=== PATIENT | male | born 1935 | race Caucasian/White ===

== ENCOUNTER 2018-03-11 12:35 | Emergency (ER) | payer MEDICARE, OTHER ==
--- NOTE | 2018-03-11 12:42 | ED Physician Documentation ---
PD HPI Fall - Stated complaint Stated Complaint: GLF - History obtained from History obtained from: Patient, Family - History of Present Illness Mechanism of injury: Slipped (He was in the emergency department with his . He was all but running down the hallway and slipped forward and fell face first hitting his face on the ground. He has a lip wound but no other injuries. There is no loss of consciousness and he is not anticoagulated. He has a history of Parkinson's but does not use any aids to help him walk.) Review of Systems Constitutional: denies: Fever, Chills Nose: denies: Rhinorrhea / runny nose, Congestion Cardiac: denies: Chest pain / pressure, Palpitations Respiratory: denies: Dyspnea, Cough PD PAST MEDICAL HISTORY - Past Medical History Cardiovascular: High cholesterol Endocrine/Autoimmune: Type 2 diabetes : Benign prostate hypertrophy - Past Surgical History Past Surgical History: Yes General: Cholecystectomy - Present Medications Home Medications: Ambulatory Orders Medication Instructions Recorded Confirmed Carbidopa/Levodopa ER 50/200 1 each PO QID 09/14/12 09/14/12 [Sinemet Cr 50 mg/200 mg] Fenofibrate 160 mg PO HS 09/14/12 09/14/12 Finasteride [Proscar] 5 mg PO DAILY 09/14/12 09/14/12 - Allergies Allergies/Adverse Reactions: Allergies Allergy/AdvReac Type Severity Reaction Status Date / Time Sulfa (Sulfonamide AdvReac Intermediate yeast Verified 03/11/18 12:45 Antibiotics) infection - Social History Does the pt smoke?: No Smoking Status: Never smoker Does the pt drink ETOH?: No - Immunizations Immunizations are current?: No PD ED PE NORMAL - Vitals Vital signs reviewed: Yes - General General: Alert and oriented X 3, No acute distress - HEENT HEENT: Pharynx benign, Other (He has dentures on the top and implants on the bottom. It appears that 1 of the teeth either real or false made a wound just to the left of the midline on the mucosal surface of the upper lip with mild maxillary tenderness.) - Neck Neck: Supple, no meningeal sign, No bony TTP - Cardiac Cardiac: RRR, No murmur - Respiratory Respiratory: No respiratory distress, Clear bilaterally - Abdomen Abdomen: Non tender - Back Back: No spinal TTP - Neuro Neuro: Alert and oriented X 3, Normal speech Results - Vitals Vitals: Vital Signs - 24 hr 03/11/18 03/11/18 12:37 12:57 Temperature 36.5 C Heart Rate 71 Respiratory 20 Rate Blood Pressure 89/64 L 122/96 H O2 Saturation 98 Oxygen O2 Source Room air - Labs Labs: Laboratory Tests 03/11/18 03/11/18 03/11/18 14:19 14:19 14:19 WBC 5.0 RBC 4.09 L Hgb 13.7 L Hct 39.1 L MCV 95.5 H MCH 33.6 H MCHC 35.1 RDW 12.5 Plt Count 141 MPV 8.9 Neut # (Auto) 3.0 Lymph # (Auto) 1.6 [place] # (Auto) 0.4 Eos # (Auto) 0.1 Baso # (Auto) 0.0 Absolute Nucleated RBC 0.00 Nucleated RBC % 0.1 PT 13.0 H INR 1.2 Sodium 137 Potassium 4.1 Chloride 103 Carbon Dioxide 29 Anion Gap 5.0 L BUN 21 H Creatinine 1.1 Estimated GFR (MDRD) 64 L Glucose 106 H Calcium 9.2 Total Bilirubin 0.8 AST 33 ALT < 10 L Alkaline Phosphatase 48 Total Protein 7.6 Albumin 4.4 Globulin 3.2 Albumin/Globulin Ratio 1.4 Lipase 35 - Rads (name of study) CT Head/Face and Cspine Radiology: EMP read contemporaneously (Left holohemispheric subdural hematoma with mild mass-effect including 4-5 mm left to right midline shift. The attenuation suggests it is subacute in nature. There is no acute abnormality of the C-spine or facial bones but he does have emphysema at the apices and he is edentulous on top.) PD MEDICAL DECISION MAKING - ED course ED course: This is an 82-year-old gentleman with Parkinson's who took a fall while in the department here with his who was the original patient. He has a lip wound but it is not too serious. He went over for CTs and this demonstrated to my eye a left subdural hemorrhage that does not look acute today, I asked him when he last fell and he took a hard fall about a week ago hitting the right side of his head. Since then per the he has had a mild decline in his balance but not too much worse than his usual from the Parkinson's, they thought that was due to a recent change in his carbidopa/levodopa. [facility] was called for potential transfer for neurosurgical evaluation at 1:52 PM. Took call at about 2:02 from the radiologist who agrees this looks like almost a subacute subdural but it is quite big with a little bit, 4 mm, of midline shift. He agrees the time course would be may be a week old, unless the patient is very anemic in which case it could be acute. I was notified at 2:04 PM that [facility] was full and could not accept this patient in transfer. I spoke with the patient and his and now we will try [facility] in [place]. Per the transfer center they contacted the neurosurgeon who deferred to the hospitalist service for admit. He was accepted there by Dr. Reed at 3:02 PM and cobras were completed. Departure - Departure Disposition: 02 Transfer Acute Care Hosp Clinical Impression: Traumatic subdural hemorrhage Qualifiers: Encounter type: initial encounter Loss of consciousness presence/duration: without LOC Qualified Code(s): S06.5X0A - Traumatic subdural hemorrhage without loss of consciousness, initial encounter Condition: Serious
--- NOTE | 2018-03-11 14:01 | CT Report ---
Reason: head injury, GLF Procedure Date: 03/11/2018 Accession Number: [id number] / [id number] Procedure: CT - Head W/O CPT Code: FULL RESULT: EXAM: CT HEAD EXAM DATE: 03/11/2018 01:34 PM. CLINICAL HISTORY: Head injury, GLF. COMPARISON: None. TECHNIQUE: Multiaxial CT images were obtained from the foramen magnum to the vertex. Reformats: Sagittal and coronal. IV contrast: None. In accordance with CT protocol optimization, one or more of the following dose reduction techniques were utilized for this exam: automated exposure control, adjustment of mA and/or KV based on patient size, or use of iterative reconstructive technique. FINDINGS: Parenchyma: There is low-intermediate attenuation subdural hematoma over the left cerebral convexity. This measures approximately 19 mm in greatest thickness in the left posterior frontal region (series 5, image 21). There is slight mass-effect and indentation of the adjacent parenchyma (series 2, image 24). The left lateral ventricle is mildly effaced. There is approximately 4-5 mm hgvx-rn-[id number] shift at the level of the foramen of Colvin. No other areas of intracranial hemorrhage are demonstrated. The overall tsai-white matter differentiation is preserved. There is focal hypoattenuation in the left external capsule (series 2, image 20), which may represent sequela of previous infarct. Extraaxial Spaces: Left-sided subdural hematoma, as described above. Ventricles: Mild effacement of the left lateral ventricle, as described above. Minimal crowding of the left side of the suprasellar cistern (series 5, image 19). Basal systems are otherwise widely patent. Sinuses and Orbits: The visualized portions of the paranasal sinuses and mastoid air cells are clear. Orbits are unremarkable. Bones: Calvarium appears intact. Other: None. IMPRESSION: Left holohemispheric subdural hematoma with mild mass-effect, including 4-5 mm hfxg-zi-[id number] midline shift. Given the attenuation of the hematoma, this may be subacute in nature. Alternatively, if the patient is anemic, this could represent acute subdural hematoma. RADIA The above findings were discussed with Dr. Mikhail Romero by Dr. London Fry at 14:00 hrs on 03/11/18.
--- NOTE | 2018-03-11 14:04 | CT Report ---
Reason: head injury, GLF Procedure Date: 03/11/2018 Accession Number: [id number] / [id number] Procedure: CT - Cervical Spine W/O CPT Code: FULL RESULT: EXAM: CT CERVICAL SPINE WITHOUT CONTRAST DATE: 03/11/2018 01:34 PM. HISTORY: Head injury, GLF. COMPARISONS: None. TECHNIQUE: Thin-section axial images were acquired of the cervical spine without contrast. Post-processing: Coronal and sagittal reformats. Other: None. In accordance with CT protocol optimization, one or more of the following dose reduction techniques were utilized for this exam: automated exposure control, adjustment of mA and/or KV based on patient size, or use of iterative reconstructive technique. FINDINGS: Alignment: No significant scoliosis or spondylolisthesis. Bones: No acute fracture is demonstrated. Interspace Levels/Facets: Mild disk height loss and uncovertebral spurring present at C5-C6. There is severe right-sided facet degeneration at C2-C3. Mild multilevel facet degeneration present elsewhere. Musculature: No fatty atrophy. Other: No prevertebral soft tissue swelling or paraspinous hematoma. There is mild emphysema in the lung apices. IMPRESSION: 1. No acute fracture or malalignment of the cervical spine. 2. Multilevel degenerative changes, as described above. 3. Mild emphysema in the lung apices. RADIA
--- NOTE | 2018-03-11 14:08 | CT Report ---
Reason: head injury, GLF Procedure Date: 03/11/2018 Accession Number: [id number] / [id number] Procedure: CT - Facial Bones W/O CPT Code: FULL RESULT: EXAM: CT MAXILLOFACIAL WITHOUT CONTRAST EXAM DATE: 03/11/2018 01:34 PM. CLINICAL HISTORY: Head injury, GLF. COMPARISONS: None. TECHNIQUE: Thin-section axial images were acquired of the face without contrast. Post-processing: Coronal and sagittal reformats. Other: None. In accordance with CT protocol optimization, one or more of the following dose reduction techniques were utilized for this exam: automated exposure control, adjustment of mA and/or KV based on patient size, or use of iterative reconstructive technique. FINDINGS: Soft Tissue: No areas of focal soft tissue swelling are identified. Infratemporal fossa and parapharyngeal spaces are unremarkable. Orbits: Unremarkable. Globes are intact. Bones: No acute fracture is demonstrated. Temporomandibular Joints: The temporomandibular joints are symmetric and normally located. Sinuses: Paranasal sinuses and mastoid air cells are clear. Other: Patient is nearly edentulous with prosthetic mandibular incisors. Left whole hemispheric subdural hematoma is described on dedicated head CT. IMPRESSION: 1. No facial bone fracture. 2. Holohemispheric left subdural hematoma, described on dedicated head CT. RADIA
[2018-03-11 14:31] LABS: BASOPHILS % (AUTO) 0.4 %; EOSINOPHILS # (AUTO) 0.1 10^3/uL (0.0-0.7); EOSINOPHILS % (AUTO) 1.6 %; HGB - HEMOGLOBIN 13.7 g/dL (14.0-18.0); LYMPHOCYTES # (AUTO) 1.6 10^3/uL (1.5-3.5); MEAN CORPUSCULAR HEMOGLOBIN 33.6 pg (27.0-31.0); MEAN CORPUSCULAR HGB CONC 35.1 g/dL (32.0-36.0); MEAN CORPUSCULAR VOLUME 95.5 fL (80.0-94.0); MEAN PLATELET VOLUME 8.9 fL (7.4-11.4); MONOCYTES # (AUTO) 0.4 10^3/uL (0.0-1.0); MONOCYTES % (AUTO) 7.1 %; NEUTROPHILS % (AUTO) 58.9 %; PLT - PLATELET COUNT 141 10^3/uL (130-450); RED BLOOD COUNT 4.09 10^6/uL (4.70-6.10); RED CELL DISTRIBUTION WIDTH 12.5 % (12.0-15.0)
[2018-03-11 14:45] LABS: INR 1.2 (0.8-1.2)
[2018-03-11 14:47] LABS: ALBUMIN 4.4 g/dL (3.2-5.5); ALBUMIN/GLOBULIN RATIO 1.4 (1.0-2.2); ALKALINE PHOSPHATASE 48 IU/L (42-121); ALT ALANINE AMINOTRANSFERASE < 10 IU/L (10-60); AST ASPARTATE AMINOTRANSFERASE 33 IU/L (10-42); BILIRUBIN,TOTAL 0.8 mg/dL (0.2-1.0); BUN - BLOOD UREA NITROGEN 21 mg/dL (6-20); CALCIUM 9.2 mg/dL (8.5-10.3); CARBON DIOXIDE - CO2 29 mmol/L (21-32); CHLORIDE 103 mmol/L (101-111); CREATININE 1.1 mg/dL (0.6-1.2); GFR - MDRD 64 (>89); GLUCOSE 106 mg/dL (70-100); LIPASE 35 U/L (22-51); SODIUM 137 mmol/L (135-145); TOTAL PROTEIN 7.6 g/dL (6.7-8.2)
[2018-03-11 16:00] VITALS: BP 101/52
== END 2018-03-11 16:47 | disposition short-term general hospital (02) ==
LOC: ED 12:35
DX: S06.5X0A Traumatic subdural hemorrhage without loss of consciousness, initial encounter (principal); S01.501A Unspecified open wound of lip, initial encounter; W01.0XXA Fall on same level from slipping, tripping and stumbling without subsequent striking against object, initial encounter; Z91.81 History of falling; Y93.01 Activity, walking, marching and hiking; Y92.232 Corridor of hospital as the place of occurrence of the external cause; G20 Parkinson's disease; J43.9 Emphysema, unspecified; E11.9 Type 2 diabetes mellitus without complications
CPT/HCPCS: 36415; 70450; 70486; 72125; 80053; 83690; 85025; 85610; 99284

== ENCOUNTER 2018-03-11 16:50 | Outpatient (CLI) | payer MEDICARE, OTHER | END 2018-03-11 16:51 | disposition short-term general hospital (02) | LOC: EMS 16:50 | PROVIDERS: ATTEND Surgery | DX: I62.00 Nontraumatic subdural hemorrhage, unspecified (principal) | CPT/HCPCS: A0425; A0426 ==

== ENCOUNTER 2018-03-20 13:42 | Outpatient (CLI) | payer MEDICARE, OTHER | END 2018-03-20 13:43 | disposition critical access hospital (66) | LOC: EMS 13:42 | PROVIDERS: ATTEND Surgery | DX: R41.82 Altered mental status, unspecified (principal) | CPT/HCPCS: A0425; A0429 ==

== ENCOUNTER 2018-03-20 13:49 | Emergency (ER) | payer MEDICARE, OTHER ==
[2018-03-20] MEDS ORDERED: SODIUM CHLORIDE 0.9% 1,000 ML IV ONE (13:54)
--- NOTE | 2018-03-20 13:57 | ED Physician Documentation ---
PD HPI ALTERED MENTAL STATUS - Stated complaint Stated Complaint: ALOC - History obtained from History obtained from: Patient, Family, EMS, Other (Dr Arias at [facility] called me [employer]) - History of Present Illness Timing - onset: Other (82-year-old gentleman who I sent to [facility] for a large subdural hemorrhage which was evacuated by a bur holes. The says he was doing well at the hospital and discharged to the custodial and over the last 3 days has become increasingly altered with decreased activity. Dr. Arias called me prior to arrival and reports that he has not been swallowing or eating. says he was ambulatory with assistance yesterday but not today. also states that he has a cough. There is no report of fevers. No history is obtainable from the patient because of altered mental status.) Review of Systems Unable to obtain: AMS PD PAST MEDICAL HISTORY - Past Medical History Cardiovascular: High cholesterol Neuro: Parkinson's Endocrine/Autoimmune: Type 2 diabetes : Benign prostate hypertrophy - Past Surgical History Past Surgical History: Yes General: Cholecystectomy - Present Medications Home Medications: Ambulatory Orders Medication Instructions Recorded Confirmed Carbidopa/Levodopa ER 50/200 1 each PO QID 09/14/12 09/14/12 [Sinemet Cr 50 mg/200 mg] Fenofibrate 160 mg PO HS 09/14/12 09/14/12 Finasteride [Proscar] 5 mg PO DAILY 09/14/12 09/14/12 - Allergies Allergies/Adverse Reactions: Allergies Allergy/AdvReac Type Severity Reaction Status Date / Time Sulfa (Sulfonamide AdvReac Intermediate yeast Verified 03/11/18 12:45 Antibiotics) infection - Social History Does the pt smoke?: No Smoking Status: Never smoker Does the pt drink ETOH?: No - Immunizations Immunizations are current?: No PD ED PE NORMAL - Vitals Vital signs reviewed: Yes - General General: Other (He arouses to voice and will follow simple commands. 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, No motor deficit, No sensory deficit Eye Opening: To Voice Motor: Obeys Commands Verbal: Confused GCS Score: 13 Results - Vitals Vitals: Vital Signs - 24 hr 03/20/18 13:50 Temperature 36.1 C L Heart Rate 93 Respiratory 24 Rate Blood Pressure 121/64 O2 Saturation 89 L Oxygen O2 Source Nasal cannula - EKG (time done) 1415 Rate: Rate (enter#) (91) Rhythm: NSR [place]: LAD Intervals: Normal SD QRS: Normal Ischemia: Non specific changes Computer interpretation: Agree with computer - Labs Labs: Laboratory Tests 03/20/18 03/20/18 03/20/18 15:10 15:10 15:10 WBC 10.1 RBC 4.47 L Hgb 14.9 Hct 42.5 MCV 95.1 H MCH 33.4 H MCHC 35.1 RDW 12.7 Plt Count 194 MPV 9.1 Neut # (Auto) 8.7 H Lymph # (Auto) 0.5 L [place]ike # (Auto) 1.0 Eos # (Auto) 0.0 Baso # (Auto) 0.0 Absolute Nucleated RBC 0.01 Nucleated RBC % 0.1 PT 17.3 H INR 1.6 H Sodium 147 H Potassium 3.9 Chloride 106 Carbon Dioxide 30 Anion Gap 11.0 BUN 79 H Creatinine 1.2 Estimated GFR (MDRD) 58 L Glucose 168 H Lactic Acid Calcium 10.7 H Total Bilirubin 1.5 H AST 33 ALT < 10 L Alkaline Phosphatase 51 Total Creatine Kinase 84 CK-MB (CK-2) Troponin I Total Protein 8.2 Albumin 3.8 Globulin 4.4 H Albumin/Globulin Ratio 0.9 L Lipase 23 03/20/18 03/20/18 15:10 15:10 WBC RBC Hgb Hct MCV MCH MCHC RDW Plt Count MPV Neut # (Auto) Lymph # (Auto) [place]ike # (Auto) Eos # (Auto) Baso # (Auto) Absolute Nucleated RBC Nucleated RBC % PT INR Sodium Potassium Chloride Carbon Dioxide Anion Gap BUN Creatinine Estimated GFR (MDRD) Glucose Lactic Acid 1.7 Calcium Total Bilirubin AST ALT Alkaline Phosphatase Total Creatine Kinase CK-MB (CK-2) 3.8 Troponin I 0.04 Total Protein Albumin Globulin Albumin/Globulin Ratio Lipase - Rads (name of study) CT Head Radiology: EMP read contemporaneously (Accumulation of left subdural fluid collection with pneumocephalus there and midline shift.) 1v chest Radiology: EMP read contemporaneously (Left greater than right bibasilar opacities) PD MEDICAL DECISION MAKING - ED course ED course: 82-year-old gentleman who is about 8 days out from left-sided bur holes for subdural hematoma presents with clinical worsening over the last few days and altered mental status. He is hypoxemic and examination is concerning for pneumonia as well. Head CT shows recurrent fluid collection with pneumocephalus and midline shift, actually slightly larger than the original subdural fluid collection. He was accepted back to [facility] by Dr. Reed at 2:54 PM. Images were also reviewed by the neurosurgeon there, Dr. Arechiga who will consult and likely taken back to the OR. The examination with clinical pneumonia and hypoxemia is confirmed on x-ray showing left greater than right bibasilar opacities for which he is treated for hospital-acquired pneumonia with Zosyn and vancomycin. - Critical Care Time(min): 45 Time Includes: Direct patient care, Review records, Reassess patient, Document care, Coordinate care, Medical consult, Family consult for tx dec Data interpretation: Labs, Pulse ox Procedures included in critical care time: Peripheral IV, See progress note Procedures excluded from critical care time: EKG Departure - Departure Disposition: 02 Transfer Acute Care Hosp Clinical Impression: Subdural hemorrhage, Pneumocephalus, Hospital-acquired pneumonia Condition: Stable
--- NOTE | 2018-03-20 14:54 | CT Report ---
Reason: altered recent SDH evacuation Procedure Date: 03/20/2018 Accession Number: [id number] / [id number] Procedure: CT - Head W/O CPT Code: FULL RESULT: EXAM: CT HEAD EXAM DATE: 03/20/2018 02:38 PM. CLINICAL HISTORY: Altered recent subdural hemorrhage evacuation. COMPARISON: HEAD W/O 03/11/2018 1:21 PM. TECHNIQUE: Multiaxial CT images were obtained from the foramen magnum to the vertex. Reformats: Sagittal and coronal. IV contrast: None. In accordance with CT protocol optimization, one or more of the following dose reduction techniques were utilized for this exam: automated exposure control, adjustment of mA and/or KV based on patient size, or use of iterative reconstructive technique. FINDINGS: There has been interval evacuation of the previously seen left subdural collection with left anterior and posterior bur holes. The previously seen hemorrhagic extradural collection is not redemonstrated. There is left-sided hydro-pneumocephalus with subcutaneous gas and extradural gas seen along the frontal bur hole tract. The hydro-pneumocephalus exerts mass-effect on the left cerebral hemisphere with 7 mm of midline shift. Basal cisterns remain preserved. No new acute intracranial hemorrhage is seen. IMPRESSION: Depending on the exact surgical timeframe, finding of hydro-pneumocephalus with asymmetric prominence of soft tissue gas findings along the frontal bur hole is concerning for loss of integrity of the surgical closure. There is mass effect on the left cerebral hemisphere on the falx and ventricular system, 7 mm of rightward midline shift. No interval reaccumulation of intracranial hemorrhage. RADIA The above findings of new hydro-pneumocephalus with mass effect were discussed with Mikhail Romero by Dr. Taiwo Perez at 14:51 hrs on 03/20/18.
[2018-03-20 15:15] LABS: BASOPHILS % (AUTO) 0.1 %; HGB - HEMOGLOBIN 14.9 g/dL (14.0-18.0); LYMPHOCYTES # (AUTO) 0.5 10^3/uL (1.5-3.5); LYMPHOCYTES % (AUTO) 4.7 %; MEAN CORPUSCULAR HEMOGLOBIN 33.4 pg (27.0-31.0); MEAN CORPUSCULAR HGB CONC 35.1 g/dL (32.0-36.0); MEAN CORPUSCULAR VOLUME 95.1 fL (80.0-94.0); MEAN PLATELET VOLUME 9.1 fL (7.4-11.4); MONOCYTES % (AUTO) 9.9 %; NEUTROPHILS # (AUTO) 8.7 10^3/uL (1.5-6.6); NEUTROPHILS % (AUTO) 85.3 %; PLT - PLATELET COUNT 194 10^3/uL (130-450); RED BLOOD COUNT 4.47 10^6/uL (4.70-6.10); RED CELL DISTRIBUTION WIDTH 12.7 % (12.0-15.0); WHITE BLOOD COUNT 10.1 x10^3/uL (4.8-10.8)
[2018-03-20 15:22] LABS: INR 1.6 (0.8-1.2); PT - PROTHROMBIN TIME 17.3 secs (9.9-12.6)
[2018-03-20 15:27] LABS: ALBUMIN 3.8 g/dL (3.2-5.5); ALBUMIN/GLOBULIN RATIO 0.9 (1.0-2.2); ALKALINE PHOSPHATASE 51 IU/L (42-121); ALT ALANINE AMINOTRANSFERASE < 10 IU/L (10-60); AST ASPARTATE AMINOTRANSFERASE 33 IU/L (10-42); BILIRUBIN,TOTAL 1.5 mg/dL (0.2-1.0); BUN - BLOOD UREA NITROGEN 79 mg/dL (6-20); CALCIUM 10.7 mg/dL (8.5-10.3); CARBON DIOXIDE - CO2 30 mmol/L (21-32); CHLORIDE 106 mmol/L (101-111); CK- CREATINE KINASE 84 IU/L (22-269); CREATININE 1.2 mg/dL (0.6-1.2); GFR - MDRD 58 (>89); GLUCOSE 168 mg/dL (70-100); LIPASE 23 U/L (22-51); SODIUM 147 mmol/L (135-145); TOTAL PROTEIN 8.2 g/dL (6.7-8.2)
--- NOTE | 2018-03-20 15:30 | XRAY Report ---
Reason: cough, altered, rhonchi L base Procedure Date: 03/20/2018 Accession Number: [id number] / [id number] Procedure: XR - Chest 1 View X-Ray CPT Code: 44951 FULL RESULT: EXAM: CHEST RADIOGRAPHY EXAM DATE: 03/20/2018 03:06 PM. CLINICAL HISTORY: Cough, altered, rhonchi L base. COMPARISON: XR CHEST PA AND LAT 12/26/2009 8:29 PM. TECHNIQUE: 1 view. FINDINGS: Lungs/Pleura: Extensive bilateral infiltrates predominantly the lower lobes with a finely nodular pattern, left a little more than right. No consolidation, definite effusion, or pneumothorax. Mediastinum: Within exam limitations, the cardiomediastinal contour is normal. Other: Osteopenia, degenerative changes. IMPRESSION: Bilateral infiltrates, left more than right. Follow-up is recommended to confirm complete resolution. Fine nodularity suggestive of viral or mycoplasmal etiology. RADIA
[2018-03-20 15:31] LABS: TROPONIN I 0.04 ng/mL (<0.49)
[2018-03-20 15:33] LABS: CREATINE KINASE MB 3.8 ng/mL (0.6-6.3)
[2018-03-20] MEDS ORDERED: VANCOMYCIN INJ 2 GM in SODIUM CHLORIDE 0.9% 500 ML IV STA (15:40)
[2018-03-20] MEDS ORDERED: PIPERACILLIN/TAZOBACTAM 4.5 GM in SODIUM CHLORIDE 0.9% MINIBAG 100 ML IV STA (15:40)
[2018-03-20 18:08] VITALS: BP 114/59
== END 2018-03-20 18:41 | disposition short-term general hospital (02) ==
LOC: EDUNIT# → ED 13:49
DX: I62.00 Nontraumatic subdural hemorrhage, unspecified (principal); G93.89 Other specified disorders of brain; J18.9 Pneumonia, unspecified organism; Y95 Nosocomial condition; E11.9 Type 2 diabetes mellitus without complications; G20 Parkinson's disease; E78.00 Pure hypercholesterolemia, unspecified; R09.02 Hypoxemia
CPT/HCPCS: 36415; 70450; 71045; 80053; 82550; 82553; 83605; 83690; 84484; 85025; 85610; 87040; 93005; 96361; 96365; 96375; 99284; 99291; J3370